=== PATIENT | male | born 1950 | race Asian ===

== ENCOUNTER 2017-01-14 14:05 | Observation (INO) | payer OTHER ==
--- NOTE | 2017-01-14 14:45 | PDOC ---
Attending Attestation - HPI HPI: 01/14/17 16:15 66 year old male with a PMHx of HTN, HLD, diabetes who presents to the ED with intermittent chest pain for a week. Patient reports the onset of the pain is usually while walking or going up stairs. He reports resting usually alleviates his pain. However, he reports that the onset has also occurred at rest. He denies current chest pain. He denies cough, leg edema, SOB. He denies fever, chills, nausea, vomiting, diarrhea. Front End Technician: Dr. Sheree Richardson - Physicial Exam PE: 01/14/17 16:15 GENERAL: Awake, alert, and fully oriented, in no acute distress HEAD: No signs of trauma EYES: PERRLA, EOMI, sclera anicteric, conjunctiva clear ENT: Auricles normal inspection, hearing grossly normal, nares patent, oropharynx clear without exudates. Moist mucosa NECK: Normal ROM, supple, no lymphadenopathy, JVD, or masses LUNGS: Breath sounds equal, clear to auscultation bilaterally. No wheezes, and no crackles HEART: Regular rate and rhythm, normal S1 and S2, no murmurs, rubs or gallops ABDOMEN: Soft, nontender, normoactive bowel sounds. No guarding, no rebound. No masses EXTREMITIES: Normal range of motion, no edema. No clubbing or cyanosis. No cords , erythema, or tenderness NEUROLOGICAL: Cranial nerves II through XII grossly intact. Normal speech, normal gait SKIN: Warm, Dry, normal turgor, no rashes or lesions noted. <Laura Denise - Last Filed: 01/14/17 16:15> - Resident Resident Name: Shiloh Rogers - ED Attending Attestation I have performed the following: I have examined & evaluated the patient, The case was reviewed & discussed with the resident, I agree w/resident's findings & plan, Exceptions are as noted - Medical Decision Making 01/14/17 17:12 66M with HTN, HLD, DM presents to ER with exertional chest pain. Concerning for ACS. EKG with no evidence of ischemia, but pt with several risk factors. HEART score 4. Will trend troponins and admit. - Labs, serial trops - CXR, EKG - Admit <Ap Keating - Last Filed: 01/14/17 17:13> Heart Score/ECG Review - History History: Moderately suspicious - Electrocardiogram EKG: Normal - Age Age: 45-65 - Risk Factors Risk Factors Heart Score: Yes Hx Hypercholesterolemia, Yes Hx Hypertension, Yes Hx Diabetes Based on the list above the patient has:: >/=3 risk factors or Hx atherosclerotic disease - Score Heart Score - Total: 4 - ECG Intrepretation Rhythm: Regular Rhythm Comment:: 01/14/17 17:13 EKG with no STACY/STDs, no TWIs, intervals wnl <Ou,Ap - Last Filed: 01/14/17 17:13>
[2017-01-14] MEDS ORDERED: ASPIRIN 81 MG CHEWABLE TABLETS PO ONE (14:54)
--- NOTE | 2017-01-14 14:54 | PDOC ---
History of Present Illness - General Chief Complaint: Chest Pain Stated Complaint: CHEST PAIN Time Seen by Provider: 01/14/17 14:22 History Source: Patient, Family Exam Limitations: No Limitations - History of Present Illness Initial Comments: This is a 66 yo male with h/o NIDDM, HTN, HLD, and BPH who p/w episodic chest pain with associated SOB for the past week. He has about two 5 minute episodes/ day of diffuse tightness on both sides of the front of his chest, which have usually been brought on by walking and are alleviated by resting. (He does note He had one episode at about 1:30pm today while he was walking and grocery shopping, and he describes needing to sit down multiple times to catch his breath and alleviate the pain. The pain is up to 8/10 and does not radiate, and when it comes on he has SOB and rapid heart rate. He denies any recent sweats, nausea, vomiting, diarrhea, constipation, abdominal pain, cough, sore throat, runny nose, leg swelling or pain, headache, vision changes, or dizziness. He does note recent travel by flight to [place] (left 5 days ago and returned yesterday) and also rode via bus from [facility] back to his home in [place]. He has never had these symptoms prior to this week. He is followed by twister doffer Dr. Richardson, who 3 years ago did a stress test based on his risk factors (though he had been asymptomatic). The patient notes that this stress test had some abnormalities and they followed it up with an angiogram, which showed some stenosis but nothing requiring stenting at that time. Past History - Past Medical History Allergies/Adverse Reactions: Allergies Allergy/AdvReac Type Severity Reaction Status Date / Time apple Allergy Verified 01/14/17 14:08 Home Medications: Ambulatory Orders Aspirin [ASA -] 81 mg PO DAILY 01/14/17 Atenolol [Tenormin -] 50 mg PO BID 01/14/17 Empagliflozin [Jardiance] 10 mg PO DAILY 01/14/17 Glipizide/Metformin HCl [Glipizide-Metformin 5-500 mg] 2 each PO BID 01/14/17 Lisinopril [Prinivil -] 40 mg PO DAILY 01/14/17 Pioglitazone HCl [Actos] 35 mg PO DAILY 01/14/17 Simvastatin [Zocor -] 40 mg PO HS 01/14/17 Sitagliptin Phosphate [Januvia] 100 mg PO DAILY 01/14/17 Tamsulosin HCl [Flomax] 0.4 mg PO HS 01/14/17 Hx Myocardial Infarction: No Diabetes: Yes HTN: Yes Hypercholesterolemia: Yes - Psycho/Social/Smoking Cessation Hx Suicidal Ideation: No Smoking History: Never smoked Information on smoking cessation initiated: No Hx Alcohol Use: No Drug/Substance Use Hx: No Substance Use Type: None Cardiac Specific PMH - Complaint Specific PMHX Angina: No Cardiac Stent: No GERD: Yes Myocardial Infarction: No Pulmonary Embolus: No Review of Systems - Review of Systems Constitutional: No: Chills, Diaphoresis, Fever, Weakness, Unexplained wgt Loss HEENTM: No: Blurred Vision, Recent change in vision, Nose Congestion, Throat Pain Respiratory: Yes: SOB with Exertion, SOB at Rest. No: Cough, Shortness of Breath Cardiac (ROS): Yes: Palpitations (rapid), Chest Tightness (episodic). No: Edema , Lightheadedness, Syncope ABD/GI: No: Constipated, Diarrhea, Nausea, Vomiting : No: Burning, Dysuria Musculoskeletal: No: Back Pain, Neck Pain Integumentary: No: Bruising, Rash Neurological: No: Headache, Numbness, Tingling, Weakness, Dizziness Endocrine: No: Unexplained Weight Gain, Unexplained Weight Loss *Physical Exam - Vital Signs Last Vital Signs Temp Pulse Resp BP Pulse Ox 99 F 75 18 119/67 95 01/15/17 08:00 01/15/17 08:00 01/15/17 08:00 01/15/17 08:00 01/15/17 08:30 - Physical Exam General Appearance: Yes: Nourished, Appropriately Dressed, Obese, Other ( pleasant male who is conversive and accompanied by his who is supportive). No: Apparent Distress HEENT: positive: EOMI, Normal Voice, Hearing Grossly Normal. negative: Scleral Icterus (R), Scleral Icterus (L), Nasal Congestion Neck: positive: Trachea midline, Supple. negative: Tender, Rigid Respiratory/Chest: positive: Lungs Clear, Normal Breath Sounds. negative: Respiratory Distress, Accessory Muscle Use, Labored Respiration, Decreased Breath Sounds, Crackles, Rhonchi, Stridor, Wheezing Cardiovascular: positive: Regular Rhythm, Regular Rate, S1, S2, Murmur (2/6 systolic ejection heard best at LUSB). negative: JVD Gastrointestinal/Abdominal: positive: Normal Bowel Sounds, Soft. negative: Tender, Organomegaly, Pulsatile Mass, Guarding Musculoskeletal: positive: Normal Inspection. negative: Decreased Range of Motion, Vertebral Tenderness Extremity: positive: Normal Capillary Refill, Normal Inspection, Normal Range of Motion. negative: Tender, Cyanosis Integumentary: positive: Normal Color, Dry, Warm. negative: Erythema, Rash, Bruising Neurologic: positive: dog walker II-XII NML intact, Fully Oriented, Alert, Normal Mood/ Affect, Normal Response, Motor Strength 5/5 Heart Score/ECG Review - History History: Moderately suspicious - Electrocardiogram EKG: Normal - Age Age: >/= 65 - Risk Factors Risk Factors Heart Score: Yes Hx Hypercholesterolemia, Yes Hx Hypertension, Yes Hx Diabetes, Yes Hx Obesity Based on the list above the patient has:: >/=3 risk factors or Hx atherosclerotic disease #1 ECG reviewed & interpreted by me at: 14:24 NSR, rate of 92, normal axis and intervals, t-wave flattening in aVL but otherwise normal EKG. - ECG Intrepretation Rhythm: Regular Rhythm - [place]: Normal - P and MT Prominent R with upright T in V1 (true posterior MS): No Delta Wave(s) Present: No WPW: No - QRS Poor R Wave Progression: No Q Wave Present: No - ST and T Early Repolarization: No Non Specific ST-T Wave changes: No Flattened T Waves: Yes Prolonged Q-T Interval: No - ECG Impressions Normal ECG: Yes Non-specific ST Elevation: No Ischemic Changes: No Eligibility Checklist For AMI - INCLUSION CRITERIA Prolonged (>30 minutes)ischemic pain: No 12 Lead ECG indicates AMI: No ST elevation >1 mm in at least 2 limb leads: No ST elevation>2 mm in at least 2 contiguous precordial leads: No LBBB with clinical symptoms consistent with an AMI: No - EXCLUSION CRITERIA Active internal bleeding or hx of hemorrhagic diathesis: No Known bleeding diathesis: No Major surgery or serious trauma within the previous 6 weeks: No History of cerebrovascular accident(CVA): No History of central nervous system structural abnormality: No History of malignant hypertension or uncontrolled HTN: No Hemostatic defects secondary to severe hepatic/renal disease: No Diabetic hemorrhagic retinopathy: No or recent delivery(within 6 weeks): No Patients currently receiving oral anticoagulants(INR>2): Yes (ASA 81 mg/day only ) ED Treatment Course - LABORATORY CBC & Chemistry Diagram: 01/15/17 05:35 01/15/17 05:35 - ADDITIONAL ORDERS Additional order review: 01/14/17 16:00 RBC 4.67 MCV 94.9 MCHC 32.6 RDW 14.3 MPV 8.5 Neutrophils % 65.0 Lymphocytes % 16.5 Monocytes % 12.0 H Eosinophils % 6.1 H Basophils % 0.4 - RADIOLOGY Radiology Studies Ordered: Category Date Time Status CHEST X-RAY PORTABLE* [RAD] Stat Radiology 01/14/17 16:45 Completed - Medications Given in the ED: ED Medications Discontinued Medications Generic Name Dose Route Start Last Admin Trade Name Freq PRN Reason Stop Dose Admin Aspirin 162 mg 01/14/17 14:54 01/14/17 15:40 Asa - PO 01/14/17 14:55 162 mg ONCE ONE Administration Aspirin 81 mg 01/15/17 10:00 01/15/17 11:39 Asa - PO Not Given DAILY [facility] Atenolol 50 mg 01/14/17 22:00 01/15/17 13:56 Tenormin - PO 50 mg BID [facility] Administration Atorvastatin Calcium 20 mg 01/14/17 22:00 01/14/17 23:16 Lipitor - PO Not Given HS [facility] Glipizide 10 mg 01/15/17 07:00 01/15/17 06:08 Glucotrol - PO Not Given BIDAC [facility] Heparin Sodium (Porcine) 5,000 unit 01/14/17 22:00 01/15/17 11:40 Heparin - SQ Not Given BID [facility] Dipyridamole 50 mg/ Dextrose 50 mls @ 750 mls/hr 01/15/17 10:00 01/15/17 12:43 IVPB 01/15/17 10:03 Not Given ONCE ONE Insulin Aspart 1 vial 01/14/17 22:00 01/15/17 13:55 Novolog Vial Sliding Scale - SQ Not Given ACHS [facility] Protocol Lisinopril 40 mg 01/15/17 10:00 01/15/17 11:40 Prinivil PO Not Given DAILY [facility] Metformin HCl 1,000 mg 01/15/17 07:00 01/15/17 06:08 Glucophage - PO Not Given BIDAC [facility] Sitagliptin Phosphate 100 mg 01/15/17 07:00 01/15/17 06:08 Januvia - PO Not Given DAILY@0700 [facility] Tamsulosin HCl 0.4 mg 01/14/17 22:00 01/14/17 23:16 Flomax - PO Not Given HS [facility] Medical Decision Making - Medical Decision Making 66 yo male with h/o NIDDM, HTN, HLD, BPH p/w episodic chest tightness and SOB x1 wk. Most episodes this week brought on by walking, but three occurred at rest. Known h/o CAD without ACS and without stenting, followed by Dr. Richardson. Exam notable only for 2/6 systolic ejection murmur at LUSB, radial pulses equal. Ordered are CXR, CBC, CMP, cardiac profile, PT/INR. Though Pt does have h/o recent travel, his Well's criteria is low risk. The only positive on his PERC score is his age. D-dimer is not indicated. ASA given in ED, no NTG. 01/14/17 18:32 Cardiac profile neg, EKG unremarkable, CXR nothing acute. Pt's twister doffer (Dr. Richardson) is paged. Dr. Dinero calls for Dr. Moscoso's office and recommends admission to Tele Obs and will see in the morning. 01/14/17 19:[address] Serrano's office. Dr. Serrano states Dr. Salazar is admitting for the team at this time. Dr. Salazar is called, kindly agrees with admission. Admission is ordered to Tele [facility]. *DC/Admit/Observation/Transfer Diagnosis at time of Disposition: Unstable angina - Discharge Dispostion Condition at time of disposition: Guarded Admit: Yes Decision to Admit order Date/Time: 01/14/17 19:40 - Referrals - Attestations Physician Attestion: 01/14/17 18:35 I, Dr. Shiloh Rogers, attest that this document has been prepared under my direction and personally reviewed by me in its entirety. I further attest, that it accurately reflects all work, treatment, procedures and medical decision -making performed by me.
--- NOTE | 2017-01-14 15:07 | EKG ---
Test Reason : Blood Pressure : / mmHG Vent. Rate : 092 BPM Atrial Rate : 092 BPM P-R Int : 154 ms QRS Dur : 080 ms QT Int : 364 ms P-R-T Axes : 064 031 068 degrees QTc Int : 450 ms NORMAL SINUS RHYTHM NORMAL ECG NO PREVIOUS ECGS AVAILABLE Confirmed by JAZ LOWERY MD ([id number]) on 01/14/2017 3:07:05 PM Referred By: Confirmed By:JAZ LOWERY MD
[2017-01-14] MEDS ORDERED: ASPIRIN 81 MG CHEWABLE TABLETS ONE (15:39)
[2017-01-14 16:18] LABS: BASOPHIL 0.4 % (0-2.0); EOSINOPHIL 6.1 % (0-4.5); MCH 30.9 pg (25.7-33.7); MCHC 32.6 g/dl (32.0-35.9); MEAN CELL VOLUME 94.9 fl (80-96); MEAN PLT VOLUME 8.5 fl (7.5-11.1); PLATELET COUNT 155 K/MM3 (134-434); RDW 14.3 % (11.9-15.9); WHITE BLOOD COUNT 6.1 K/mm3 (4.0-10.0)
[2017-01-14 16:31] LABS: INR 1.09 (0.82-1.09)
[2017-01-14 16:48] LABS: ALBUMIN 3.5 g/dl (3.4-5.0); ANION GAP 9 (8-16); BILIRUBIN,TOTAL 0.8 mg/dL (0.2-1.0); CALCIUM 8.4 mg/dL (8.5-10.1); CO2 29 mmol/L (21-32); CREATININE 1.1 mg/dL (0.7-1.3); GLUCOSE,RANDOM 151 mg/dL (74-106); MAGNESIUM 1.9 mg/dL (1.8-2.4); SGOT/AST 48 U/L (15-37); SGPT/ALT 50 U/L (12-78); TOT PROT 6.8 g/dl (6.4-8.2)
[2017-01-14 16:50] LABS: ALK PHOS 90 U/L (45-117); CPK 292 IU/L (39-308); TROPONIN I < 0.02 ng/ml (0.00-0.05)
[2017-01-14] MEDS ORDERED: ACETAMINOPHEN 325 MG TABLET (FP) PO PRN (21:37)
[2017-01-14] MEDS ORDERED: ATORVASTATIN CA 20 MG TABLET (FP) PO SCH (22:00)
[2017-01-14] MEDS ORDERED: TAMSULOSIN HCL 0.4 MG CAP.ER.24H (FP) PO SCH (22:00)
[2017-01-14 23:09] VITALS: BMI 36.1
[2017-01-14] MEDS: ATENOLOL 50 MG TABLET (FP) PO SCH (23:17)
[2017-01-14] MEDS: HEPARIN NA (PORCINE) 5,000 UNITS/ML 1ML VIAL SQ SCH (23:21)
[2017-01-14] MEDS: INSULIN SLIDING SCALE (NOVOLOG) 1 VIAL SQ SCH (23:35)
[2017-01-15 00:17] LABS: CPK 288 IU/L (39-308); TROPONIN I < 0.02 ng/ml (0.00-0.05)
[2017-01-15] MEDS ORDERED: metFORMIN HCL 500 MG TABLET (FP) PO SCH (07:00)
[2017-01-15] MEDS ORDERED: glipiZIDE 5 MG TABLET (FP) PO SCH (07:00)
[2017-01-15] MEDS ORDERED: sitaGLIPtin PHOSPHATE 100 MG TABLET (FP) PO SCH (07:00)
[2017-01-15] MEDS: INSULIN SLIDING SCALE (NOVOLOG) 1 VIAL SQ SCH ×2 (07:20→13:55)
[2017-01-15 08:09] LABS: BASOPHIL 0.7 % (0-2.0); EOSINOPHIL 7.4 % (0-4.5); MCH 31.3 pg (25.7-33.7); MEAN CELL VOLUME 94.9 fl (80-96); NEUTROPHILS 55.6 % (42.8-82.8); PLATELET COUNT 125 K/MM3 (134-434); RDW 14.4 % (11.9-15.9)
[2017-01-15] MEDS: LISINOPRIL 20 MG TABLET (FP) PO SCH ×2 (08:57→11:40)
[2017-01-15] MEDS: ASPIRIN 81 MG CHEWABLE TABLETS PO SCH ×2 (08:57→11:39)
[2017-01-15 09:07] LABS: ALBUMIN 3.2 g/dl (3.4-5.0); ALK PHOS 73 U/L (45-117); ANION GAP 7 (8-16); BILIRUBIN,TOTAL 0.7 mg/dL (0.2-1.0); CALCIUM 8.2 mg/dL (8.5-10.1); CHOLESTEROL 123 mg/dL (50-200); CO2 28 mmol/L (21-32); CREATININE 0.8 mg/dL (0.7-1.3); GLUCOSE,RANDOM 101 mg/dL (74-106); LDL CHOLESTEROL (ONLY SJRH) 65 mg/dL (5-100); SGOT/AST 53 U/L (15-37); SGPT/ALT 54 U/L (12-78); THYROID STIMULATING HORMONE 0.46 uIU/ml (0.358-3.74); TOT PROT 6.4 g/dl (6.4-8.2); TROPONIN I < 0.02 ng/ml (0.00-0.05)
[2017-01-15] MEDS ORDERED: DIPYRIDAMOLE STRESS TEST 50 MG in DEXTROSE 5%-WATER - 40 ML IVPB ONE (10:00)
[2017-01-15] MEDS ORDERED: PATIENT'S OWN MEDICATION (NON-FORMULARY) (Empagliflozin [Jardiance] 10 MG) PO SCH (10:00)
--- NOTE | 2017-01-15 10:10 | CON.CARD ---
Consult Consult Specialty:: Cardiology Referred by:: Trevor Serrano MD Reason for Consultation:: Chest pain - History of Present Illness Chief Complaint: Chest pain History of Present Illness: 66 [place] male with h/o non-obstructive CAD on angio 01/02/2013, neg MPI 2014, endothelial dysfunction, diastolic dysfunction, NIDDM, HTN, HLD, mild PAD and carotid disease and BPH who p/w exertional retrosternal chest pain with associated SOB and palpitations for the past week usually been brought on by walking and climbing stairs and alleviated with rest. He denies associated near or true syncope, orthopnea, PND or LE edema. - History Source History Provided By: Patient Limitations to Obtaining History: No Limitations - Past Medical History Cardio/Vascular: Yes: HTN, Hyperlipdemia Endocrine: Yes: Diabetes Mellitus - Alcohol/Substance Use Hx Alcohol Use: No - Smoking History Smoking history: Never smoked Have you smoked in the past 12 months: No Home Medications - Allergies Allergies/Adverse Reactions: Allergies Allergy/AdvReac Type Severity Reaction Status Date / Time apple Allergy Verified 01/14/17 14:08 - Home Medications Home Medications: Ambulatory Orders Aspirin [ASA -] 81 mg PO DAILY 01/14/17 Atenolol [Tenormin -] 50 mg PO BID 01/14/17 Empagliflozin [Jardiance] 10 mg PO DAILY 01/14/17 Glipizide/Metformin HCl [Glipizide-Metformin 5-500 mg] 2 each PO BID 01/14/17 Lisinopril [Prinivil -] 40 mg PO DAILY 01/14/17 Pioglitazone HCl [Actos] 35 mg PO DAILY 01/14/17 Simvastatin [Zocor -] 40 mg PO HS 01/14/17 Sitagliptin Phosphate [Januvia] 100 mg PO DAILY 01/14/17 Tamsulosin HCl [Flomax] 0.4 mg PO HS 01/14/17 Review of Systems - Review of Systems Cardiovascular: reports: Chest Pain, Shortness of Breath Respiratory: reports: Exercise Intolerance Vital Signs: Vital Signs Temperature 98.5 F 01/15/17 06:00 Pulse Rate 82 01/15/17 06:00 Respiratory Rate 18 01/15/17 06:00 Blood Pressure 121/77 01/15/17 06:00 O2 Sat by Pulse Oximetry (%) 100 01/14/17 23:00 Constitutional: Yes: No Distress, Calm Neck: Yes: Supple Respiratory: Yes: Regular, CTA Bilaterally Gastrointestinal: Yes: Normal Bowel Sounds, Soft Cardiovascular: Yes: Regular Rate and Rhythm JVD: No Carotid Bruit: No Heart Sounds: Yes: S1, S2 Edema: No - Other Data Labs, Other Data: CBC, BMP 01/15/17 05:35 01/15/17 05:35 INR, PTT INR 1.09 (0.82-1.09) 01/14/17 16:00 Troponin, BNP 01/14/17 01/14/17 01/14/17 22:45 22:45 23:35 Troponin I Cancelled Cancelled < 0.02 01/15/17 05:35 Troponin I < 0.02 Troponin, BNP 01/14/17 01/14/17 01/14/17 22:45 22:45 23:35 Troponin I Cancelled Cancelled < 0.02 01/15/17 05:35 Troponin I < 0.02 NSR @ [address]-T changes Imaging - Results Chest X-ray: Report Reviewed (NAD) Problem List - Problems (1) Diastolic dysfunction without heart failure Code(s): I51.9 - HEART DISEASE, UNSPECIFIED (2) Hypertensive cardiomyopathy Code(s): I11.9 - HYPERTENSIVE HEART DISEASE WITHOUT HEART FAILURE I43 - CARDIOMYOPATHY IN DISEASES CLASSIFIED ELSEWHERE Qualifiers: Heart failure presence: without heart failure Qualified Code(s): I11.9 - Hypertensive heart disease without heart failure; I43 - Cardiomyopathy in diseases classified elsewhere (3) Hyperlipidemia associated with type 2 diabetes mellitus Code(s): E11.69 - TYPE 2 DIABETES MELLITUS WITH OTHER SPECIFIED COMPLICATION E78.5 - HYPERLIPIDEMIA, UNSPECIFIED (4) Type 2 diabetes mellitus Code(s): E11.9 - TYPE 2 DIABETES MELLITUS WITHOUT COMPLICATIONS Qualifiers: Diabetes mellitus complication status: without complication Diabetes mellitus alf insulin use: without intermodal customer service use Qualified Code(s): E11.9 - Type 2 diabetes mellitus without complications (5) Unstable angina Code(s): I20.0 - UNSTABLE ANGINA (6) Abnormal cardiovascular stress test Code(s): R94.39 - ABNORMAL RESULT OF OTHER CARDIOVASCULAR FUNCTION STUDY Assessment/Plan 1. Progressive angina with abnormal MPI in LAD territory 2. Diastolic dysfunction 3. HTN/HCVD 4. Type 2 DM 5. Hyperlipidemia 6. Mild PAD and carotid diease P:1. Ruled out for SC, check Ha1c 2. Nuclear stress test shows severe anterior and apical, moderate septal ischemia, mild-mod inferior ischemia, TID, apical HK, normal LVEF and echocardiogram results, plan for [facility] today given results 3. Continue Aspirin 81 mg qd, Atenolol 50 bid, Jardiance 10 qd, Januvia 100 qd, lisinopril 40 qd, Lipitor 20 qhs 4. Further recommendations pending above study results 5. Thank you for consultative opportunity
[2017-01-15] MEDS: ATENOLOL 50 MG TABLET (FP) PO SCH ×2 (11:40→13:56)
[2017-01-15] MEDS: HEPARIN NA (PORCINE) 5,000 UNITS/ML 1ML VIAL SQ SCH (11:40)
[2017-01-15] MEDS ORDERED: NITROGLYCERIN SUBLINGUAL 1/150 0.4 MG TAB ONE (12:23)
[2017-01-15 13:53] VITALS: BP 119/67; PULSE 75; TEMP 99
--- NOTE | 2017-01-16 08:18 | EKG ---
Test Reason : Blood Pressure : / mmHG Vent. Rate : 078 BPM Atrial Rate : 078 BPM P-R Int : 156 ms QRS Dur : 080 ms QT Int : 392 ms P-R-T Axes : 070 057 068 degrees QTc Int : 446 ms NORMAL SINUS RHYTHM NORMAL ECG WHEN COMPARED WITH ECG OF 14-JAN-2017 14:24, NO SIGNIFICANT CHANGE WAS FOUND Confirmed by ANITA VITALE MD ([id number]) on 01/16/2017 8:17:44 AM Referred By: Eduardo TORRES Confirmed By:ANITA VITALE MD
== END 2017-01-15 15:01 | disposition short-term general hospital (02) ==
LOC: JER 14:05 → JERBED 19:07 → J4W 22:23
PROVIDERS: ADMIT Family Medicine; ATTEND Family Medicine
DX: I11.9 Hypertensive heart disease without heart failure (principal); E11.69 Type 2 diabetes mellitus with other specified complication; I20.0 Unstable angina; R94.39 Abnormal result of other cardiovascular function study; I43 Cardiomyopathy in diseases classified elsewhere; E78.5 Hyperlipidemia, unspecified; N40.0 Benign prostatic hyperplasia without lower urinary tract symptoms; Z79.82 Long term (current) use of aspirin; Z79.84 Long term (current) use of oral hypoglycemic drugs
CPT/HCPCS: 36415; 71010-TC; 78452-TC; 80053; 80061; 82553; 83721; 83735; 84443; 84484; 85025; 85610; 93005; 93010; 93017; 93306-TC; 99285-25; A9502; G0378; J1644

== ENCOUNTER 2022-01-01 04:18 | Day surgery (SDC) | payer OTHER ==
[2021-12-31 11:22] VITALS: BMI 35.1
[~2022-01-01 04:18] MED LIST: TOBRAMYCIN/DEXAMETHASONE OPHTH. OINTMENT 1 TUBE TP ONE
[2022-01-01] MEDS ORDERED: TROPICAMIDE 1% OPHTH SOLN 15 ML BOTTLE ONE (06:39)
[2022-01-01] MEDS ORDERED: DICLOFENAC SODIUM 0.1% OPHTHALMIC 2.5ML BOTTLE ONE (06:39)
[2022-01-01] MEDS ORDERED: CIPROFLOXACIN 0.3% EYE DROPS 5 ML BOTTLE ONE (06:39)
[2022-01-01] MEDS ORDERED: PHENYLEPHRINE 2.5% OPTHALMIC DROP BOTTLE ONE (06:40)
[2022-01-01] MEDS: PHENYLEPHRINE 2.5% OPHTH SOLN 15 ML BOTTLE OP SCH ×3 (06:45→06:55)
[2022-01-01] MEDS: CIPROFLOXACIN HCL 0.3% OPHTH 2.5ML BOTTLE OP SCH ×3 (06:45→07:15)
[2022-01-01] MEDS: DICLOFENAC SODIUM 0.1% OPHTHALMIC 2.5ML BOTTLE OP SCH ×3 (06:45→07:15)
[2022-01-01] MEDS: TROPICAMIDE 1% OPHTH SOLN 15 ML BOTTLE OP SCH ×3 (06:45→06:55)
[2022-01-01] MEDS ORDERED: TOBRAMYCIN/DEXAMETHASONE OPHTH. OINTMENT 1 TUBE ONE (07:16)
[2022-01-01] MEDS ORDERED: BSS (NA/CA/MG/K) BALANCED SALT SOLUTION OPHTH SOLN 15 ML BOTTLE ONE (07:17)
[2022-01-01] MEDS ORDERED: LIDOCAINE HCL/PF 1% SDV 5ML VIAL ONE (07:17)
[2022-01-01] MEDS ORDERED: TETRACAINE 0.5% OPHTH SOLN 2 ML BOTTLE ONE (07:17)
[2022-01-01] MEDS ORDERED: POVIDONE-IODINE 5% OPHTHALMIC PREP 30 ML SOLUTION ONE (07:17)
[2022-01-01] MEDS ORDERED: ACETAMINOPHEN 325 MG TABLET (FP) PO PRN (07:25)
[2022-01-01] MEDS ORDERED: MIDAZOLAM HCL 2 MG/2 ML SINGLE DOSE VIAL ONE (09:02)
[2022-01-01] MEDS ORDERED: TETRACAINE 0.5% OPHTH SOLN 2 ML BOTTLE TP ONE (09:02)
[2022-01-01] MEDS ORDERED: POVIDONE-IODINE 5% OPHTHALMIC PREP 30 ML SOLUTION OS ONE (09:03)
[2022-01-01] MEDS ORDERED: BSS (NA/CA/MG/K) BALANCED SALT SOLUTION OPHTH SOLN 15 ML BOTTLE OS ONE (09:09)
[2022-01-01] MEDS ORDERED: LIDOCAINE HCL 1% PRESERVATIVE FREE - 30ML VIAL IO ONE (09:10)
[2022-01-01] MEDS ORDERED: CHONDROITIN SU A/HYALUR SOD 1 KIT IO ONE (09:10)
[2022-01-01] MEDS ORDERED: EPINEPHrine/PF 1 MG/1 ML (1:1,000) AMPULE SQ ONE (09:28)
[2022-01-01] MEDS ORDERED: PHENYLEPHRINE/KETOROLAC 4 ML VIAL IO ONE (09:28)
[2022-01-01] MEDS ORDERED: TOBRAMYCIN/DEXAMETHASONE OPHTH. OINTMENT 1 TUBE TP ONE (09:47)
[2022-01-01 11:40] VITALS: BP 114/71; PULSE 74; TEMP 98
== END 2022-01-01 11:10 | disposition home or self-care (01) ==
LOC: JASU-SURG 04:18
PROVIDERS: ATTEND Ophthalmology
PROC: 08RK3JZ Replacement of Left Lens with Synthetic Substitute, Percutaneous Approach (ICD-10-PCS; principal; 2022-01-01 08:30)
DX: H26.9 Unspecified cataract (principal)
CPT/HCPCS: 82962; J1097

== ENCOUNTER 2022-01-15 03:48 | Day surgery (SDC) | payer OTHER ==
[2022-01-13 14:08] VITALS: BMI 35.1
[~2022-01-15 03:48] MED LIST changes: +TOBRAMYCIN/DEXAMETHASONE OPHTH. OINTMENT 1 TUBE OD ONE; -TOBRAMYCIN/DEXAMETHASONE OPHTH. OINTMENT 1 TUBE TP ONE
[2022-01-15] MEDS ORDERED: DICLOFENAC SODIUM 0.1% OPHTHALMIC 2.5ML BOTTLE ONE (06:08)
[2022-01-15] MEDS ORDERED: PHENYLEPHRINE 2.5% OPTHALMIC DROP BOTTLE ONE (06:08)
[2022-01-15] MEDS ORDERED: CIPROFLOXACIN 0.3% EYE DROPS 5 ML BOTTLE ONE (06:08)
[2022-01-15] MEDS ORDERED: TROPICAMIDE 1% OPHTH SOLN 15 ML BOTTLE ONE (06:08)
[2022-01-15 06:28] VITALS: PULSE 72
[2022-01-15] MEDS ORDERED: CIPROFLOXACIN HCL 0.3% OPHTH 2.5ML BOTTLE OD ONE ×2 (06:45→07:00)
[2022-01-15] MEDS ORDERED: PHENYLEPHRINE 2.5% OPHTH SOLN 15 ML BOTTLE OD ONE ×2 (06:45→07:00)
[2022-01-15] MEDS ORDERED: DICLOFENAC SODIUM 0.1% OPHTHALMIC 2.5ML BOTTLE OD ONE ×2 (06:45→07:00)
[2022-01-15] MEDS ORDERED: TROPICAMIDE 1% OPHTH SOLN 15 ML BOTTLE OD ONE ×2 (06:45→07:00)
[2022-01-15] MEDS ORDERED: TOBRAMYCIN/DEXAMETHASONE OPHTH. OINTMENT 1 TUBE ONE (07:12)
[2022-01-15] MEDS ORDERED: LIDOCAINE HCL/PF 1% SDV 5ML VIAL ONE (07:13)
[2022-01-15] MEDS ORDERED: TETRACAINE 0.5% OPHTH SOLN 2 ML BOTTLE ONE (07:13)
[2022-01-15] MEDS ORDERED: BSS (NA/CA/MG/K) BALANCED SALT SOLUTION OPHTH SOLN 15 ML BOTTLE ONE (07:14)
[2022-01-15] MEDS ORDERED: POVIDONE-IODINE 5% OPHTHALMIC PREP 30 ML SOLUTION ONE (07:14)
[2022-01-15] MEDS ORDERED: ACETAMINOPHEN 325 MG TABLET (FP) PO PRN (07:28)
[2022-01-15] MEDS ORDERED: MIDAZOLAM HCL 2 MG/2 ML SINGLE DOSE VIAL ONE (07:29)
[2022-01-15] MEDS ORDERED: DICLOFENAC SODIUM 0.1% OPHTHALMIC 2.5ML BOTTLE OP SCH (07:30)
[2022-01-15] MEDS ORDERED: TROPICAMIDE 1% OPHTH SOLN 15 ML BOTTLE OP SCH (07:30)
[2022-01-15] MEDS ORDERED: PHENYLEPHRINE 2.5% OPHTH SOLN 15 ML BOTTLE OP SCH (07:30)
[2022-01-15] MEDS ORDERED: CIPROFLOXACIN HCL 0.3% OPHTH 2.5ML BOTTLE OP SCH (07:30)
[2022-01-15] MEDS ORDERED: TETRACAINE 0.5% OPHTH SOLN 2 ML BOTTLE TP ONE (07:40)
[2022-01-15] MEDS ORDERED: TETRACAINE 0.5% OPHTH SOLN 2 ML BOTTLE OD ONE ×2 (07:40)
[2022-01-15] MEDS ORDERED: POVIDONE-IODINE 5% OPHTHALMIC PREP 30 ML SOLUTION OD ONE ×2 (07:41)
[2022-01-15] MEDS ORDERED: BSS (NA/CA/MG/K) BALANCED SALT SOLUTION OPHTH SOLN 15 ML BOTTLE OD ONE (07:48)
[2022-01-15] MEDS ORDERED: BSS (NA/CA/MG/K) BALANCED SALT SOLUTION OPHTH SOLN 15 ML BOTTLE IO ONE (07:48)
[2022-01-15] MEDS ORDERED: LIDOCAINE HCL 1% PRESERVATIVE FREE - 30ML VIAL IO ONE ×4 (07:49)
[2022-01-15] MEDS ORDERED: CHONDROITIN SU A/HYALUR SOD 1 KIT IO ONE (07:49)
[2022-01-15] MEDS ORDERED: PHENYLEPHRINE/KETOROLAC 4 ML VIAL IO ONE (07:58)
[2022-01-15] MEDS ORDERED: TOBRAMYCIN/DEXAMETHASONE OPHTH. OINTMENT 1 TUBE TP ONE (08:12)
[2022-01-15] MEDS ORDERED: TOBRAMYCIN/DEXAMETHASONE OPHTH. OINTMENT 1 TUBE OD ONE (08:12)
[2022-01-15 09:19] VITALS: RESP 18; TEMP 97.1
[2022-01-15 09:48] VITALS: BP 105/73
== END 2022-01-15 09:00 | disposition home or self-care (01) ==
LOC: JASU-SURG 03:48
PROVIDERS: ATTEND Ophthalmology
PROC: 08RJ3JZ Replacement of Right Lens with Synthetic Substitute, Percutaneous Approach (ICD-10-PCS; principal; 2022-01-15 07:30)
DX: H25.041 Posterior subcapsular polar age-related cataract, right eye (principal); I10 Essential (primary) hypertension; E11.9 Type 2 diabetes mellitus without complications
CPT/HCPCS: 82962; J1097